=== PATIENT | male | born 2000 | race Caucasian/White ===

== ENCOUNTER 2019-03-04 22:34 | Emergency (ER) | payer OTHER ==
[~2019-03-04] VITALS: Ht 175.3 cm; Wt 83.9 kg
[~2019-03-04 22:34] MED LIST: AUGMENTIN 875875 MG PO; BACTRIM DS TAB1 EACH PO; CIPROFLOXACIN500 M1 PO; FLOMAX0.4 MG PO; HYDROCODONE-AP1 EAC6 PO; IBUPROFEN 800800 M1 PO; LIORESAL 10 MG10 MG PO; LORTAB 5-500 T1 EAC1 PO; NAPROSYN500 MG PO; NOHOMEMEDICATIONS; PENICILLIN V P500 MG PO; PHENERGAN 25 MG25 M1 PO; TRAMADOL 50 MG50 MG PO; ZOFRAN ODT4 MG PO
[2019-03-04 23:44] LABS: URINE BILIRUBIN NEGATIVE (Negative); URINE BLOOD 1+ (Negative); URINE CLARITY CLEAR; URINE COLOR YELLOW; URINE GLUCOSE-RANDOM NEGATIVE (Negative); URINE KETONES NEGATIVE (Negative); URINE LEUKOCYTES-REFLEX NEGATIVE (Negative); URINE NITRITE-REFLEX NEGATIVE (Negative); URINE PROTEIN NEGATIVE (Negative); URINE SPECIFIC GRAVITY <= 1.005 (1.005-1.030); URINE UROBILINOGEN 0.2 E.U./dl (0.2-1.0)
[2019-03-05 00:04] LABS: BACTERIA-REFLEX 1-9 Few /HPF (None Seen); CASTS None Seen /LPF (None Seen); CRYSTALS None Seen /LPF (None Seen); MUCUS None Seen strn/LPF (None Seen); SQUAMOUS 0-3 Few /LPF (0-3); URINE RBC 3-10 Few /HPF (0-2); URINE WBC-REFLEX None Seen /HPF (0-5)
[2019-03-05 02:11] VITALS: BP 113/76
== END 2019-03-05 02:11 | disposition home or self-care (01) ==
LOC: M.ERS 22:34
PROVIDERS: Physician Assistant
DX: N23 Unspecified renal colic (principal); Z87.442 Personal history of urinary calculi

== ENCOUNTER → 2020-10-10 | Emergency (ER) | payer OTHER ==
[~2020-10-10] VITALS: Ht 172.7 cm; Wt 93.0 kg
[~2020-10-10] MED LIST changes: +ZOFRAN ODT4 MG SUBLING
[2020-10-10 17:11] LABS: ABSOLUTE BASOPHILS 0.1 thou/uL (0.0-0.2); ABSOLUTE EOSINOPHILS 0.2 thou/uL (0.0-0.7); ABSOLUTE LYMPHOCYTES 2.4 thou/uL (0.8-5.3); ABSOLUTE MONOCYTES 0.8 thou/uL (0.0-1.2); ABSOLUTE NEUTROPHILS 6.5 thou/uL (1.6-8.1); BASOPHILS 0.6 %; EOSINOPHILS 1.8 %; HEMATOCRIT 49.5 % (42.0-52.0); HEMOGLOBIN 17.1 gm/dL (14.0-18.0); LYMPHOCYTES 24.1 %; MCH 29.8 pg (26.0-34.0); MCHC 34.6 g/dL (28.0-37.0); MCV 86.1 fL (80.0-100.0); MONOCYTES 8.2 %; NUCLEATED RBCS 0 /100WBC; PLATELET COUNT* 236 thou/uL (150-400); POLYS 65.3 %; RBC 5.74 mil/uL (4.50-6.00); RDW-CV 13.1 % (10.5-14.5)
[2020-10-10 17:22] LABS: CALCIUM 9.5 mg/dL (8.5-10.1); CREATININE 1.2 mg/dL (0.6-1.3); POTASSIUM 3.3 mmol/L (3.5-5.1)
[2020-10-10 17:23] LABS: URINE BLOOD NEGATIVE (Negative); URINE CLARITY CLEAR; URINE COLOR YELLOW; URINE GLUCOSE-RANDOM NEGATIVE (Negative); URINE KETONES NEGATIVE (Negative); URINE LEUKOCYTES-REFLEX NEGATIVE (Negative); URINE NITRITE-REFLEX NEGATIVE (Negative); URINE PROTEIN NEGATIVE (Negative); URINE SPECIFIC GRAVITY >= 1.030 (1.005-1.030)
[2020-10-10 17:26] LABS: ALBUMIN 4.2 g/dL (3.4-5.0); TOTAL BILIRUBIN 2.1 mg/dL (<0.1-1.0); TOTAL PROTEIN 7.7 g/dL (6.4-8.2)
[2020-10-10 17:27] LABS: URINE BILIRUBIN 1+ (Negative)
[2020-10-10 17:28] LABS: ICTOTEST (BILI CONFIRMATORY) Negative (Negative)
[2020-10-10 17:33] LABS: AMP/METHAMP POSITIVE (Negative); BARBITURATES Negative (Negative); BENZODIAZEPINES Negative (Negative); COCAINE Negative (Negative); METHADONE Negative (Negative); OPIATES Negative (Negative); PCP Negative (Negative); THC Negative (Negative)
[2020-10-10 17:34] LABS: ACETAMINOPHEN < 2 ug/mL (10-30); ALCOHOL < 10 mg/dL (<10); SALICYLATE < 2.8 mg/dL (2.8-20.0)
[2020-10-10 18:01] VITALS: BP 130/70
--- NOTE | 2020-10-11 09:12 | EKG ---
[place] [address] ELECTROCARDIOGRAM REPORT Name: VIPIN ADAME Abilio Room: [facility]#: [id number] Admission: 10/10/20 Attend Phys: Discharge: Date of : [birth year] Date of Service: 10/10/20 1709 Report #: [id number] THIS REPORT FOR: //name// [facility] ED Test Date: 2020-10-10 Test Time: 17:09:59 Pat Name: VIPIN ADAME Department: Room: Gender: Verification Manager: [facility] : 2000 Requested By: Nathan Workman Order Number: [id number] MD: Jorge Avelar Measurements Intervals [place] Rate: 57 P: 23 TX: 156 QRS: 53 QRSD: 96 T: 29 QT: 463 QTc: 451 Interpretive Statements Sinus rhythm Baseline wander in lead(s) III,aVL,aVF Compared to ECG 05/17/2017 21:24:25 no change Electronically Signed On 10-11-2020 9:12:01 [employer] by Jorge Avelar [email or web address] <ELECTRONICALLY SIGNED> By: Jorge Avelar MD, [facility] 10/11/20 0912 1709 1709 Jorge Avelar MD, [facility] /EPI
== END ==
LOC: M.ERS 16:52
PROVIDERS: Family Medicine
DX: F15.10 Other stimulant abuse, uncomplicated (principal)

== ENCOUNTER 2021-08-07 17:42 | Emergency (ER) | payer OTHER ==
[~2021-08-07] VITALS: Ht 175.3 cm; Wt 90.7 kg
[2021-08-07 17:59] LABS: URINE BILIRUBIN NEGATIVE (Negative); URINE BLOOD NEGATIVE (Negative); URINE CLARITY CLEAR; URINE COLOR YELLOW; URINE GLUCOSE-RANDOM NEGATIVE (Negative); URINE KETONES NEGATIVE (Negative); URINE LEUKOCYTES-REFLEX NEGATIVE (Negative); URINE NITRITE-REFLEX NEGATIVE (Negative); URINE PROTEIN NEGATIVE (Negative); URINE SPECIFIC GRAVITY >= 1.030 (1.005-1.030); URINE UROBILINOGEN 0.2 E.U./dl (0.2-1.0)
[2021-08-07] MEDS ORDERED: DOXYCYCLINE 10100 M2 PO (18:09)
[2021-08-07] MEDS ORDERED: CEFIXIME400 MG PO (18:09)
[2021-08-07 18:16] VITALS: BP 139/85
== END 2021-08-07 18:17 | disposition home or self-care (01) ==
LOC: M.ERS 17:42
PROVIDERS: Nurse Practitioner Family
DX: R30.0 Dysuria (principal); Z98.890 Other specified postprocedural states; Z87.442 Personal history of urinary calculi

== ENCOUNTER 2021-11-20 16:20 | Emergency (ER) | payer OTHER ==
[~2021-11-20] VITALS: Ht 175.3 cm; Wt 93.0 kg
[~2021-11-20 16:20] MED LIST changes: +CEFIXIME400 MG PO; +DOXYCYCLINE 10100 M2 PO
[2021-11-20 17:43] VITALS: BP 175/91
== END 2021-11-20 18:01 | disposition home or self-care (01) ==
LOC: M.ERS 16:20
DX: R10.31 Right lower quadrant pain (principal); Z53.21 Procedure and treatment not carried out due to patient leaving prior to being seen by health care provider; X50.0XXA Overexertion from strenuous movement or load, initial encounter; Y93.89 Activity, other specified; Y92.89 Other specified places as the place of occurrence of the external cause; Y99.8 Other external cause status